=== PATIENT | female | born 1970 | race Caucasian/White ===

== ENCOUNTER → 2022-01-04 | Outpatient (CLI) | payer BC ==
--- NOTE | 2022-01-04 10:04 | US ---
EXAMINATION TYPE: US abdomen complete DATE OF EXAM: 01/04/2022 COMPARISON: NONE CLINICAL HISTORY: R10.11 Right upper quadrant abdomen pain for 3 days. TECHNIQUE: Multiple sonographic images of the abdomen are obtained. FINDINGS: EXAM MEASUREMENTS: Liver Length: 16.6 cm Gallbladder Wall: 0.17 cm CBD: 0.39 cm Spleen: 10.2 cm Right Kidney: 10.1 x 4.2 x 4.8 cm Left Kidney: 10.7 x 4.8 x 4.9 cm Pancreas: Tail obscured by overlying bowel gas Liver: Increased attenuation. Hypoechoic area near gallbladder measuring 1.9 x 0.7 x 1.5 cm, possib ly sparring vs mass. Hypoechoic mass right lobe near dome measuring 2.0 x 1.9 x 1.8cm. Gallbladder: wnl. No shadowing calculi, wall thickening, or pericholecystic fluid. Evidence for sonographic Petty's sign: No CBD: wnl Spleen: wnl Right Kidney: wnl . No solid mass, hydronephrosis, shadowing calculi. Left Kidney: wnl . No solid mass, hydronephrosis, or shadowing calculi. Upper IVC: wnl Abd Aorta: wnl IMPRESSION: Hepatic steatosis with hypoechoic 2 cm mass within the right lobe near the dome and additional hypoec hoic area near the gallbladder measuring up to 1.9 cm which may represent focal fatty sparing versus mass. Further evaluation with CT or MR abdomen with IV contrast ( liver mass protocol) is recommended .
== END | disposition home or self-care (01) ==
LOC: RADUSWWP 08:33
PROVIDERS: ATTEND Family Medicine
DX: K76.0 Fatty (change of) liver, not elsewhere classified (principal)
CPT/HCPCS: 76700

== ENCOUNTER → 2022-01-06 | Outpatient (CLI) | payer BC ==
--- NOTE | 2022-01-06 16:15 | CT ---
EXAMINATION TYPE: CT abdomen wo/w con DATE OF EXAM: 01/06/2022 COMPARISON: Correlation ultrasound 01/04/2022 HISTORY: 52-year-old female R16.0, hepatomegaly, RUQ pain TECHNIQUE: Contiguous axial scanning of the abdomen before and after administration of 70 ml Isovue 3 00 IV contrast. Delayed images through the kidneys and coronal/sagittal reconstructions performed. CT DLP: 1582.3 mGycm Automated exposure control for dose reduction was used. FINDINGS: Heart normal size without pericardial effusion. Lung bases clear without pleural effusion. Liver normal size at 16.8 cm. There is low attenuation compatible with fatty infiltration. We note so me focal fatty sparing along the gallbladder fossa. There is a 2.4 cm lesion within the posterior rig ht liver lobe, axial image 26. This shows nodular arterial phase enhancement and fill-in on the delay ed images suggesting hepatic hemangioma. This corresponds well with the 2 cm ultrasound lesion. Portal venous system is patent. No biliary ductal dilatation. Gallbladder, adrenal glands, kidneys, spleen, and pancreas within normal limits. No dilated small bowel, free fluid, or free air. No mesenteric or retroperitoneal lymphadenopathy. A few nonspecific borderline-sized right lower quadrant mesenteric lymph nodes measure up to 8 mm. Mild stool burden. No pericolonic inflammatory change. Pelvis not imaged. Bones: Facet arthropathy lower lumbar spine. Mild degenerative disc disease lower thoracic spine. IMPRESSION: 1. MILD TO MODERATE HEPATIC STEATOSIS. CORRELATE WITH LFT's, LIVER PROTOCOL, AND PATIENT RISK FACTORS . 2. FINDINGS CONFIRM FOCAL FATTY SPARING ALONG THE GALLBLADDER FOSSA. 3. THE SECOND LESION ON ULTRASOUND CORRESPONDS TO A 2.4 CM BENIGN HEMANGIOMA OF THE POSTERIOR RIGHT L IVER LOBE.
== END | disposition home or self-care (01) ==
LOC: RADCTMAIN 12:29
PROVIDERS: ATTEND Family Medicine
DX: D18.03 Hemangioma of intra-abdominal structures (principal); K76.0 Fatty (change of) liver, not elsewhere classified
CPT/HCPCS: 74170; Q9967

== ENCOUNTER → 2022-01-24 | Outpatient (CLI) | payer BC ==
--- NOTE | 2022-01-24 09:34 | NM ---
EXAMINATION TYPE: NM hepatobiliary w EF DATE OF EXAM: 01/24/2022 9:23 AM COMPARISON: CT abdomen pelvis most recent from . 01/06/2022, ultrasound 01/04/2022 CLINICAL INDICATION:Female, 52 years old with history of R10.11 RUQ pain; TECHNIQUE: The patient was given 4.3 mCi of Technetium 99m-Mebrofenin as a radiotracer and multiple scintigraphic images were obtained of the abdomen. Gallbladder function was also assessed after the a dministration of 4 mL of Sincalide (cholecystokinin) and additional scintigraphic images were obtaine d of the abdomen. A region of interest was drawn over the gallbladder and a timing activity curve was generated. The gallbladder ejection fraction was calculated. FINDINGS: Normal uptake of radiotracer was identified within the liver within 0 seconds with excretion into the hepatic and common biliary ducts within 6 minutes. There was normal progressive washout of the liver over the course of the study. Radiotracer uptake within the gallbladder at 30 minutes as well as sma ll bowel activity was identified at 10 minutes. Maximum calculated gallbladder ejection fraction is: 61% at 30 minutes (Normal gallbladder ejection fraction is > 35%) IMPRESSION: 1. Normal hepatobiliary scan. 2. Normal ejection fraction.
== END | disposition home or self-care (01) ==
LOC: RADNMMAIN 07:04
PROVIDERS: ATTEND Family Medicine
DX: R10.11 Right upper quadrant pain (principal)
CPT/HCPCS: 78226; A9537

== ENCOUNTER 2024-01-07 02:27 | Inpatient (IN) | payer BC ==
--- NOTE | 2024-01-07 03:05 | ED ---
Abdominal Pain HPI - General Source: patient Mode of arrival: wheelchair Limitations: no limitations - History of Present Illness MD Complaint: abdominal pain -: days(s) Location: diffuse Migration to: no migration Severity: moderate Quality: aching Consistency: constant Improves With: nothing Worsens With: nothing Associated Symptoms: nausea, vomiting, diarrhea <Darren Chawla - Last Filed: 01/07/24 07:07> <Manjinder Schmitt - Last Filed: 01/07/24 08:25> - General Chief Complaint: Abdominal Pain Stated Complaint: NV Time Seen by Provider: 01/07/24 02:50 - History of Present Illness Initial Comments: This patient is a 54-year-old woman who presents to have evaluation for diffuse abdominal pain. She is also having multiple rounds of nausea and vomiting and some diarrhea. She states that symptoms started on Sunday. She has had greater than 10 rounds of vomiting per day. She has not noted any blood or coffee-ground material. No bloody bowel movements. She has not noted tarry stools. Patient states that she is urinating less than usual and she thinks she is dehydrated. Does note that she had celebrated her birthday on Sunday and had 4-5 drinks but she otherwise does not drink much. (Darren Chawla) - Related Data Allergies Allergy/AdvReac Type Severity Reaction Status Date / Time No Known Allergies Allergy Verified 01/07/24 02:36 Review of Systems ROS Other: All systems not noted in ROS Statement are negative. Constitutional: Denies: fever, chills, weakness Respiratory: Denies: cough, dyspnea Cardiovascular: Denies: chest pain, palpitations, orthopnea, edema, syncope Gastrointestinal: Reports: abdominal pain, nausea, vomiting, diarrhea. Denies: constipation, hematemesis, melena, hematochezia Genitourinary: Denies: dysuria, hematuria Musculoskeletal: Denies: back pain Skin: Denies: rash Neurological: Denies: headache, weakness, numbness <Darren Chawla - Last Filed: 01/07/24 07:07> ROS Other: All systems not noted in ROS Statement are negative. <Manjinder Schmitt - Last Filed: 01/07/24 08:25> ROS Statement: Those systems with pertinent positive or pertinent negative responses have been documented in the HPI. Past Medical History Past Medical History: No Reported History History of Any Multi-Drug Resistant Organisms: None Reported Past Surgical History: No Surgical Hx Reported Past Psychological History: No Psychological Hx Reported Smoking Status: Never smoker Past Alcohol Use History: Occasional Past Drug Use History: None Reported <Darren Chawla - Last Filed: 01/07/24 07:07> General Exam Limitations: no limitations General appearance: alert, in no apparent distress Head exam: Present: atraumatic, normocephalic Eye exam: Present: normal appearance. Absent: scleral icterus, conjunctival injection Neck exam: Present: normal inspection Respiratory exam: Present: normal lung sounds bilaterally. Absent: respiratory distress, wheezes, rales, rhonchi, stridor, accessory muscle use Cardiovascular Exam: Present: regular rate, normal rhythm, normal heart sounds. Absent: systolic murmur, diastolic murmur, rubs, gallop GI/Abdominal exam: Present: soft, tenderness. Absent: distended, guarding, rebound, rigid, mass, pulsatile mass, hernia Extremities exam: Present: normal inspection, normal capillary refill. Absent: pedal edema, calf tenderness Back exam: Present: normal inspection. Absent: CVA tenderness (R), CVA tend erness (L) Neurological exam: Present: alert Skin exam: Present: warm, dry, intact, normal color. Absent: rash <Darren Chawla - Last Filed: 01/07/24 07:07> Course Vital Signs 01/07/24 01/07/24 01/07/24 02:34 06:20 08:17 Temperature 98.5 F Pulse Rate 115 H 79 72 Respiratory 18 16 16 Rate Blood Pressure 171/127 140/88 127/82 O2 Sat by Pulse 96 95 97 Oximetry Medical Decision Making - Lab Data Result diagrams: 01/07/24 03:10 01/07/24 03:10 <Darren Chawla - Last Filed: 01/07/24 07:07> - Lab Data Result diagrams: 01/07/24 03:10 01/07/24 03:10 <Manjinder Schmitt - Last Filed: 01/07/24 08:25> - Medical Decision Making Patient care signed out to me by Dr. Chawla at 7:00 AM. Briefly, patient is a 54-year-old female presents emergency department with abdominal pain nausea and vomiting. Plan at signout was to follow-up with pending imaging studies. Patient had labs that were performed positive for pancreatitis. Plan at signout was to follow-up with pending ultrasound imaging. Ultrasound abdomen obtained showing severe hepatic steatosis. Unable to visualize bile duct gallbladder is hydropic with tiny gallstones. Unclear if this is from gallstone pancreatitis versus simply just hydropic gallbladder from fasting state. Laboratory evaluat ion does not support the diagnosis of choledocholithiasis. Nonetheless patient will be admitted consultation to GI and general surgery. Case discussed with hospitalist for admission. Diagnosis/symptom? @ -Pancreatitis Acute, or Chronic, or Acute on Chronic? @ -Acute, complicated Uncomplicated (without systemic symptoms) or Complicated (systemic symptoms)? @ -Complicated Side effects of treatment? @ -None Exacerbation, Progression, or Severe Exacerbation] @ -No Poses a threat to life or bodily function? @ -yes (Manjinder Schmitt) - Lab Data Lab Results 01/07/24 01/07/24 01/07/24 Range/Units 03:10 03:10 03:10 WBC 12.3 H (3.8-10.6) k/uL RBC 4.98 (3.80-5.40) m/uL Hgb 15.1 (11.4-16.0) gm/dL Hct 45.5 (34.0-46.0) % MCV 91.4 (80.0-100.0) fL MCH 30.3 (25.0-35.0) pg MCHC 33.1 (31.0-37.0) g/dL RDW 13.9 (11.5-15.5) % Plt Count 272 (150-450) k/uL MPV 8.0 Neutrophils % 84 % Lymphocytes % 10 % Monocytes % 4 % Eosinophils % 1 % Basophils % 0 % Neutrophils # 10.3 H (1.3-7.7) k/uL Lymphocytes # 1.2 (1.0-4.8) k/uL Monocytes # 0.4 (0-1.0) k/uL Eosinophils # 0.2 (0-0.7) k/uL Basophils # 0.1 (0-0.2) k/uL Sodium 138 (137-145) mmol/L Potassium 3.8 (3.5-5.1) mmol/L Chloride 105 (98-107) mmol/L Carbon Dioxide 20 L (22-30) mmol/L Anion Gap 13 mmol/L BUN 24 H (7-17) mg/dL Creatinine 0.80 (0.52-1.04) mg/dL Est GFR (CKD-EPI)AfAm >90 (>60 ml/min/1.73 sqM) Est GFR (CKD-EPI)NonAf 84 (>60 ml/min/1.73 sqM) Glucose 137 H (74-99) mg/dL Plasma Lactic Acid Willy 1.3 (0.7-2.0) mmol/L Calcium 9.7 (8.4-10.2) mg/dL Total Bilirubin 1.3 (0.2-1.3) mg/dL AST 87 H (14-36) U/L ALT 87 H (4-34) U/L Alkaline Phosphatase 65 (38-126) U/L C-Reactive Protein 0.7 (<1.0) mg/dL Total Protein 8.5 H (6.3-8.2) g/dL Albumin 5.2 H (3.5-5.0) g/dL Amylase 2275 H* (30-110) U/L Lipase >51038 H (23-300) U/L Disposition <Darren Chawla - Last Filed: 01/07/24 07:07> Decision Time: 08:25 <Manjinder Schmitt - Last Filed: 01/07/24 08:25> Clinical Impression: Pancreatitis Disposition: ADMITTED IP TO THIS [facility] Condition: Serious Referrals: Hal Moody DO [Primary Care Provider] - 1-2 days
[2024-01-07] MEDS: MORPHINE SULFATE 4 MG/ML SYRINGE IV STA ×2 (03:17→05:55)
[2024-01-07] MEDS: ONDANSETRON 4 MG/2 ML VIAL IVP STA (03:19)
[2024-01-07] MEDS: SODIUM CHLORIDE 0.9% 500 ML 500 ML IV STA (03:19)
[2024-01-07 03:25] LABS: Basophils # (A) 0.1 k/uL (0-0.2); Basophils % (A) 0 %; Eosinophils # (A) 0.2 k/uL (0-0.7); Eosinophils % (A) 1 %; HCT 45.5 % (34.0-46.0); HGB 15.1 gm/dL (11.4-16.0); Lymphocytes # (A) 1.2 k/uL (1.0-4.8); Lymphocytes % (A) 10 %; MCH 30.3 pg (25.0-35.0); MCHC 33.1 g/dL (31.0-37.0); MCV 91.4 fL (80.0-100.0); Monocytes # (A) 0.4 k/uL (0-1.0); Monocytes % (A) 4 %; Neutrophils # (A) 10.3 k/uL (1.3-7.7); Neutrophils % (A) 84 %; Platelet Count 272 k/uL (150-450); RBC 4.98 m/uL (3.80-5.40); RDW 13.9 % (11.5-15.5); WBC 12.3 k/uL (3.8-10.6)
[2024-01-07 03:37] LABS: ALT 87 U/L (4-34); AST 87 U/L (14-36); African American GFR (CKD) >90 (>60 ml/min/1.73 sqM); Albumin 5.2 g/dL (3.5-5.0); Alkaline Phosphatase 65 U/L (38-126); Anion Gap 13 mmol/L; Blood Urea Nitrogen 24 mg/dL (7-17); C Reactive Protein 0.7 mg/dL (<1.0); Calcium 9.7 mg/dL (8.4-10.2); Carbon Dioxide 20 mmol/L (22-30); Chloride 105 mmol/L (98-107); Glucose 137 mg/dL (74-99); Non-African American GFR(CKD) 84 (>60 ml/min/1.73 sqM); Potassium 3.8 mmol/L (3.5-5.1); Sodium 138 mmol/L (137-145); Total Bilirubin 1.3 mg/dL (0.2-1.3); Total Protein 8.5 g/dL (6.3-8.2)
[2024-01-07 04:22] LABS: Amylase 2275 U/L (30-110)
[2024-01-07 04:23] LABS: Lipase >20000 U/L (23-300)
--- NOTE | 2024-01-07 04:55 | CT ---
EXAMINATION TYPE: CT abdomen pelvis wo con DATE OF EXAM: 01/07/2024 HISTORY: abdominal pain with nausea and vomiting. CT DLP: 730.4 mGycm. Automated Exposure Control for Dose Reduction was Utilized. TECHNIQUE: CT scan of the abdomen and pelvis is performed without oral or IV contrast. COMPARISON: Prior CT January 06, 2022 FINDINGS: Within the limitations of a non-contrast study, the following observations are made. LUNG BASES: No significant abnormality is appreciated. LIVER/GB: Dependent small stones and/or gallbladder sludge is seen. Gallbladder is distended margins without surrounding fat stranding. Liver is heterogeneously hypodense consistent with fatty infiltrat karon hepatocellular disease PANCREAS: Mild to moderate fluid surrounding the pancreas. No well-formed fluid collection is seen. SPLEEN: No significant abnormality is seen. ADRENALS: No significant abnormality is seen. KIDNEYS: No renal stones or hydronephrosis is present bilaterally. BOWEL: No abnormal small or large bowel dilatation. GENITAL ORGANS: There is anteverted uterus redemonstrated. Tubal ligation clip along the right aspect of uterus is again seen. Displaced left-sided clip into the pelvic cul-de-sac is noted. LYMPH NODES: No greater than 1cm abdominal or pelvic lymph nodes are appreciated. OSSEOUS STRUCTURES: No significant abnormality is seen. OTHER: No significant additional abnormality is seen. IMPRESSION: Mild to moderate fluid surrounding the pancreas likely product of acute pancreatitis. Cor relation clinically and with pancreatic lab values is advised. [facility], , 01/07/2024 4:53 AM
[2024-01-07] MEDS: SODIUM CHLORIDE 0.9% 1,000 ML IV ONE (05:54)
--- NOTE | 2024-01-07 07:31 | US ---
EXAMINATION TYPE: US abdomen limited DATE OF EXAM: 01/07/2024 COMPARISON: CT earlier today CLINICAL INDICATION: Female, 54 years old with history of attention RUQ, evaluate CBD; CT showed gall stones, pancreatitis, and fatty liver TECHNIQUE: Grayscale and color Doppler imaging of the right upper quadrant was performed. FINDINGS: EXAM MEASUREMENTS: Liver Length: 18.8 cm Gallbladder Wall: 0.2 cm CBD: Unable to identify due to fatty liver and bowel gas Right Kidney: 10.8 x 4.1 x 5.7 cm Pancreas: No gross abnormality by ultrasound. Liver: Severely increased attenuation, decreased visualization of vessels suggestive of fatty infilt rate Gallbladder: Tiny echogenic foci with posterior shadowing seen within dependant portion of the gallb ladder. Mildly hydropic measuring 5.0 cm wide. No surrounding fluid or jennifer wall thickening. Evidence for sonographic Petty's sign: No CBD: Unable to identify due to fatty liver attenuation and bowel gas Right Kidney: wnl IMPRESSION: 1. Severe hepatic steatosis. Appropriate clinical management is advised. 2. Unable to visualize the bile duct to the bowel gas and attenuation from the fatty liver. 3. Hydropic gallbladder with tiny gallstones. The excessive distention may relate to fasting state. I f concern for early acute cholecystitis, HIDA scan can be considered. There is no jennifer wall thickeni ng or surrounding fluid at this time. [facility], , 01/07/2024 7:28 AM
[2024-01-07] MEDS ORDERED: ACETAMINOPHEN TAB 325 MG TAB PO PRN (08:21)
[2024-01-07] MEDS ORDERED: NALOXONE 0.4 MG/ML 1 ML VIAL IV PRN (08:21)
[2024-01-07] MEDS: SODIUM CHLORIDE 0.9% 1,000 ML IV SCH (08:34)
--- NOTE | 2024-01-07 12:43 | P.CONS ---
History of Present Illness - Reason for Consult Consult date: 01/07/24 Pancreatitis Requesting physician: Manjinder Schmitt - Chief Complaint abdominal pain - History of Present Illness Is a pleasant 54-year-old female who presented to the emergency department with complaints of abdominal pain and nausea and vomiting. She states the pain wraps across her upper abdomen. Started on Sunday and has progressively gotten worse associated with nausea and vomiting. She was noted to have elevated amylase and lipase as well as AST and ALT. She had a CT of the abdomen pelvis showing acute pancreatitis with multiple gallstones and gallstone sludge. Gastroenterology was consulted for pancreatitis. She denies any previous history of pancreatitis or gallbladder disease. Total bilirubin 1.3 AST 87 ALT 87 alkaline phosphatase 67 amylase 2275 lipase greater than 20,000 Review of Systems REVIEW OF SYSTEMS: CARDIOPULMONARY: No chest pain or shortness of breath. Gastrointestinal: Abdominal pain associated with nausea and vomiting. No hematemesis, coffee-ground emesis. No rectal bleeding, or melena. GENITOURINARY: No dysuria or hematuria. MUSCULOSKELETAL: Reports normal range of motion. SKIN: No rashes. No jaundice. ENDOCRINE: No chills, fevers. No excessive weight gain or loss. No polydipsia or polyuria. PSYCHIATRIC: Unremarkable. NEUROLOGY: No change in mental status. Denies dizziness, headache. ENT: Vision unremarkable. CONSTITUTIONAL: No recent weight loss. No fever, chills, night sweats. Past Medical History Past Medical History: No Reported History History of Any Multi-Drug Resistant Organisms: None Reported Past Surgical History: No Surgical Hx Reported Past Psychological History: No Psychological Hx Reported Smoking Status: Never smoker Past Alcohol Use History: Occasional Past Drug Use History: None Reported Medications and Allergies Home Medications Medication Instructions Recorded Confirmed Type No Known Home Medications 01/07/24 01/07/24 History Allergies Allergy/AdvReac Type Severity Reaction Status Date / Time No Known Allergies Allergy Verified 01/07/24 08:34 Physical Exam Vitals: Vital Signs Temp Pulse Resp BP Pulse Ox 01/07/24 08:17 72 16 127/82 97 01/07/24 06:20 79 16 140/88 95 01/07/24 02:34 98.5 F 115 H 18 171/127 96 Intake and Output 01/06/24 01/07/24 01/07/24 22:59 06:59 14:59 Other: Weight 81.647 kg General appearance: The patient is alert, oriented, appears in no acute distress. HET: Head is normocephalic and atraumatic. Conjunctiva pink. Sclera anicteric. Neck: Supple without lymphadenopathy. Trachea midline. Heart: Regular. Lungs: Equal expansion, normal respiratory effort. Abdomen: Soft, upper abdominal tenderness, nondistended. Skin: No rashes. No jaundice. Extremities: Normal skin color and turgor. No pedal edema. Neurological: No focal deficits. Alert and oriented x3. Results CBC & Chem 7: 01/07/24 03:10 01/07/24 03:10 Labs: Abnormal Lab Results - Last 24 Hours (Table) 01/07/24 01/07/24 Range/Units 03:10 03:10 WBC 12.3 H (3.8-10.6) k/uL Neutrophils # 10.3 H (1.3-7.7) k/uL Carbon Dioxide 20 L (22-30) mmol/L BUN 24 H (7-17) mg/dL Glucose 137 H (74-99) mg/dL AST 87 H (14-36) U/L ALT 87 H (4-34) U/L Total Protein 8.5 H (6.3-8.2) g/dL Albumin 5.2 H (3.5-5.0) g/dL Amylase 2275 H* (30-110) U/L Lipase >58643 H (23-300) U/L Comments: CT abdomen pelvis without contrast reports dependent small stones and/or gallbladder sludge seen. Gallbladder distended margins without surrounding fat stranding. Liver is heterogeneously hypodense consistent with fatty infiltrative hepatocellular disease. Mild to moderate fluid surrounding the pancreas likely product of acute pancreatitis. Abdominal ultrasound reports severe hepatic steatosis. Appropriate clinical management is advised. Unable to visualize the bile duct to 2 bowel gas and attenuation from the fatty liver. Hydropic gallbladder with tiny gallstones. The extensive distention may relate to fasting state. If concern for early acute cholecystitis HIDA scan can be considered. There is no jennifer wall thickening or surrounding fluid at this time. Assessment and Plan (1) Acute gallstone pancreatitis Narrative/Plan: 54-year-old female presenting with acute onset abdominal pain on Sunday continuing to get worse and associated with nausea and vomiting. She has labs consistent with pancreatitis. CT and ultrasound evidence of gallstones, also noted fatty liver disease. LFTs are mildly elevated without cholestatic pattern. Treat for acute gallstone pancreatitis with symptomatic treatment. Recommend aggressive IV hydration, pain medication and antiemetics. Await recommendations from general surgery. Current Visit: Yes Status: Acute Code(s): K85.10 - BILIARY ACUTE PANCREATITIS WITHOUT NECROSIS OR INFECTION SNOMED Code(s): 261575825 Plan: 1. Continue symptomatic and supportive care 2. Aggressive IV hydration 3. Pain medication as needed 4. Antiemetics as needed 5. Protonix 40 mg daily for GI prophylaxis 6. Keep n.p.o., may have limited ice chips 7. Repeat labs daily 8. Continue with recommendations from general surgery Thank you for this consultation, we will continue to follow Dr. Zhane Stevens I agree with the dictator's note, documented as a scribe by Lynn Hernandez.
[2024-01-07] MEDS: MORPHINE SULFATE 4 MG/ML SYRINGE IV PRN (14:12)
--- NOTE | 2024-01-07 14:51 | P.GSCN ---
History of Present Illness Consult date: 01/07/24 History of present illness: CHIEF COMPLAINT: Abdominal pain HISTORY OF PRESENT ILLNESS: This is a 54-year-old who presented with epigastric abdominal pain that radiates over to the right upper quadrant and around towards the back. Patient reports symptoms started on Sunday. And then her nausea and vomiting with dry heaves started on Sunday. She has been having hot and cold flashes. She reports no prior histories of pancreatitis. And she reports no history of gallstones. She denies any fevers. She had a CT scan completed that showed evidence of pancreatitis and an abdominal ultrasound that reported hydropic gallbladder with stones and fatty liver. Patient had elevated lipase and liver enzymes on lab work. Patient's past surgical history includes avery endectomy and removal of fibroids from the uterus. PAST MEDICAL HISTORY: none PAST SURGICAL HISTORY: Appendectomy, , removal of fibroids MEDICATIONS: See below ALLERGIES: See below SOCIAL HISTORY: No illicit drug use. REVIEW OF SYSTEMS: CONSTITUTIONAL: Denies fever or chills. HEENT: Denies blurred vision, vision changes, or eye pain. Denies hemoptysis CARDIOVASCULAR: Denies chest pain or pressure. RESPIRATORY: No shortness of breath. GASTROINTESTINAL: See HPI for pertinent findings HEMATOLOGIC: Denies bleeding disorders. GENITOURINARY: Denies any blood in urine or increased urinary frequency. SKIN: Denies pruitis. Denies rash. PHYSICAL EXAM: VITAL SIGNS: Reviewed GENERAL: Well-developed in no acute distress. HEENT: No sclera icterus. Extraocular movements grossly intact. Moist buccal mucosa. Head is atraumatic, normocephalic. No nasal drainage. ABDOMEN: Soft. Nondistended. Tenderness with palpation right upper quadrant and epigastric area. No guarding. NEUROLOGIC: Alert and oriented. Cranial nerves II through XII grossly intact. LABORATORY DATA: WBC 12.3 Hgb 15.1 platelets 272 Sodium 138 potassium 3.8 creatinine 0.8 Lactic acid 1.3 Total bili 1.3 AST 87 ALT 87 alk phos 65 Lipase greater than 20,000 amylase 2275 IMAGING: CT scan abdomen pelvis reports mild to moderate fluid surrounding the pancreas likely a product of acute pancreatitis. Abdominal ultrasound reports severe hepatic steatosis. Hydropic gallbladder with tiny gallstones. ASSESSMENT: 1. Acute gallstone pancreatitis with evidence of hydropic gallbladder with tiny gallstones on ultrasound 2. Chronic cholecystitis 3. Mildly elevated LFTs PLAN: -Laparoscopic cholecystectomy scheduled for tomorrow with Dr. Schneider -Keep patient n.p.o. except for ice chips -Repeat LFTs and lipase in a.m. -Await further recommendations per GI service -Add Zosyn due to elevated white count -Continue IV fluids -Continue pain management Physician Embedded Software Development Engineer note has been reviewed by physician. Signing provider agrees with the documented findings, assessment, and plan of care. Past Medical History Past Medical History: No Reported History History of Any Multi-Drug Resistant Organisms: None Reported Past Surgical History: No Surgical Hx Reported Past Psychological History: No Psychological Hx Reported Smoking Status: Never smoker Past Alcohol Use History: Occasional Past Drug Use History: None Reported Medications and Allergies Home Medications Medication Instructions Recorded Confirmed Type No Known Home Medications 01/07/24 01/07/24 History Allergies Allergy/AdvReac Type Severity Reaction Status Date / Time No Known Allergies Allergy Verified 01/07/24 08:34 Surgical - Exam Vital Signs Temp Pulse Resp BP Pulse Ox 98.5 F 115 H 18 171/127 96 01/07/24 02:34 01/07/24 02:34 01/07/24 02:34 01/07/24 02:34 01/07/24 02:34 Results - Labs 01/07/24 03:10 01/07/24 03:10 Abnormal Lab Results - Last 24 Hours (Table) 01/07/24 01/07/24 Range/Units 03:10 03:10 WBC 12.3 H (3.8-10.6) k/uL Neutrophils # 10.3 H (1.3-7.7) k/uL Carbon Dioxide 20 L (22-30) mmol/L BUN 24 H (7-17) mg/dL Glucose 137 H (74-99) mg/dL AST 87 H (14-36) U/L ALT 87 H (4-34) U/L Total Protein 8.5 H (6.3-8.2) g/dL Albumin 5.2 H (3.5-5.0) g/dL Amylase 2275 H* (30-110) U/L Lipase >10384 H (23-300) U/L Diabetes panel 01/07/24 Range/Units 03:10 Sodium 138 (137-145) mmol/L Potassium 3.8 (3.5-5.1) mmol/L Chloride 105 (98-107) mmol/L Carbon Dioxide 20 L (22-30) mmol/L BUN 24 H (7-17) mg/dL Creatinine 0.80 (0.52-1.04) mg/dL Glucose 137 H (74-99) mg/dL Calcium 9.7 (8.4-10.2) mg/dL AST 87 H (14-36) U/L ALT 87 H (4-34) U/L Alkaline Phosphatase 65 (38-126) U/L Total Protein 8.5 H (6.3-8.2) g/dL Albumin 5.2 H (3.5-5.0) g/dL Calcium panel 01/07/24 Range/Units 03:10 Calcium 9.7 (8.4-10.2) mg/dL Albumin 5.2 H (3.5-5.0) g/dL Pituitary panel 01/07/24 Range/Units 03:10 Sodium 138 (137-145) mmol/L Potassium 3.8 (3.5-5.1) mmol/L Chloride 105 (98-107) mmol/L Carbon Dioxide 20 L (22-30) mmol/L BUN 24 H (7-17) mg/dL Creatinine 0.80 (0.52-1.04) mg/dL Glucose 137 H (74-99) mg/dL Calcium 9.7 (8.4-10.2) mg/dL Adrenal panel 01/07/24 Range/Units 03:10 Sodium 138 (137-145) mmol/L Potassium 3.8 (3.5-5.1) mmol/L Chloride 105 (98-107) mmol/L Carbon Dioxide 20 L (22-30) mmol/L BUN 24 H (7-17) mg/dL Creatinine 0.80 (0.52-1.04) mg/dL Glucose 137 H (74-99) mg/dL Calcium 9.7 (8.4-10.2) mg/dL Total Bilirubin 1.3 (0.2-1.3) mg/dL AST 87 H (14-36) U/L ALT 87 H (4-34) U/L Alkaline Phosphatase 65 (38-126) U/L Total Protein 8.5 H (6.3-8.2) g/dL Albumin 5.2 H (3.5-5.0) g/dL
--- NOTE | 2024-01-07 16:34 | P.HPIM ---
History of Present Illness H&P Date: 01/07/24 Chief Complaint: Abdominal pain Patient is a 54-year-old female without significant past medical history presents to ER with complaints of abdominal pain mainly in the epigastric region and right upper quadrant, radiating around to the back. Patient states that her symptoms started on Sunday. On Sunday patient started having nausea and dry heaves which is not improving. Patient has dry heaving 10-15 times today. He has been having hot and cold flashes. Denied any alcohol abuse. Denied any prior history of gallstones. Denied any fever or chills. No chest pain or shortness of breath. CT of the abdomen pelvis on admission showed mild to moderate fluid surrounding the pancreas likely product of acute pancreatitis. Correlate clinically with the pancreatic lab values is advised. Dependent small stones and/gallbladder sludge is seen. Gallbladder is distended margins without is surrounding fat stranding. Liver is heterogeneity hypodense consistent with fatty infiltrate to hepatocellular disease. Laboratory show WBC 12.3 hemoglobin 15.1 and platelets [birth year]20[birth year]1971 Sodium 138 potassium 3.8 chloride 105 bicarb is 20 BUN 24 and creatinine 0.8 and blood sugar 137 lactic acid 1.3 total bili 1.3 AST 87 ALT 87 alk phos 65 albumin 5.2 mL is 2275 and lipase greater than 20,000 Review of Systems Constitutional: Patient denies any fever or chills . No generalized weakness or weight loss. Abdomen: Patient is complaining of abdominal pain, nausea and dry heaves. No diarrhea.. Cardiovascular: Patient denies any chest pain or short of breath no palpitations. Respiratory: patient denied any cough or sputum production. No shortness of breath Neurologic: Patient denied any numbness or tingling. no headache. Musculoskeletal: Patient denies any complaints of joint swelling or deformity. Skin: Negative Psychiatric: Negative Endocrine: No heat or cold intolerance. No recent weight gain. Genitourinary: No dysuria or hematuria. All other 14 point ROS negative except the above Past Medical History Past Medical History: No Reported History History of Any Multi-Drug Resistant Organisms: None Reported Past Surgical History: No Surgical Hx Reported Past Psychological History: No Psychological Hx Reported Smoking Status: Never smoker Past Alcohol Use History: Occasional Past Drug Use History: None Reported Medications and Allergies Home Medications Medication Instructions Recorded Confirmed Type No Known Home Medications 01/07/24 01/07/24 History Allergies Allergy/AdvReac Type Severity Reaction Status Date / Time No Known Allergies Allergy Verified 01/07/24 08:34 Physical Exam Vitals: Vital Signs Temp Pulse Resp BP Pulse Ox 01/07/24 08:17 72 16 127/82 97 01/07/24 06:20 79 16 140/88 95 01/07/24 02:34 98.5 F 115 H 18 171/127 96 Intake and Output 01/06/24 01/07/24 01/07/24 22:59 06:59 14:59 Other: Weight 81.647 kg PHYSICAL EXAMINATION: Patient is lying in the bed mild distress due to pain, awake alert and oriented.. HEENT: Normocephalic. Neck is supple. Pupils reactive. Nostrils clear. Oral cavity is moist. Neck reveals no JVD, carotid bruits, or thyromegaly. CHEST EXAMINATION: Trachea is central. Symmetrical expansion. Lung caldwell clear to auscultation and percussion. CARDIAC: Normal S1, S2 with no gallops. No murmurs ABDOMEN: Soft. Bowel sounds present. Epigastric tenderness and mild guarding.. No abdominal bruits. Extremities: reveal no edema. No clubbing or cyanosis Neurologically awake, alert, oriented x3 with well-coordinated movements. No focal deficits noted Skin: No rash or skin lesions. Psychiatric: Coperative. Nonsuicidal Musculoskeletal: No joint swelling or deformity. Normal range of motion. Results CBC & Chem 7: 01/07/24 03:10 01/07/24 03:10 Labs: Abnormal Lab Results - Last 24 Hours (Table) 01/07/24 01/07/24 Range/Units 03:10 03:10 WBC 12.3 H (3.8-10.6) k/uL Neutrophils # 10.3 H (1.3-7.7) k/uL Carbon Dioxide 20 L (22-30) mmol/L BUN 24 H (7-17) mg/dL Glucose 137 H (74-99) mg/dL AST 87 H (14-36) U/L ALT 87 H (4-34) U/L Total Protein 8.5 H (6.3-8.2) g/dL Albumin 5.2 H (3.5-5.0) g/dL Amylase 2275 H* (30-110) U/L Lipase >64737 H (23-300) U/L Thrombosis Risk Factor Assmnt - DVT/VTE Prophylaxis DVT/VTE Prophylaxis: Pharmacologic Prophylaxis ordered Assessment and Plan Assessment: Acute severe pancreatitis likely gallstone related Small gallstones and gallbladder sludge with distended gallbladder. Elevated amylase and lipase levels Mild leukocytosis GI and DVT prophylaxis with Pepcid and heparin subcu Plan: Patient will be continued on IV hydration and nothing by mouth. Continue with IV pain medications in the form of morphine 4 mg every 4 hourly. Gastroenterology and general surgery was consulted. Patient was started on antibiotics due to leukocytosis and continue to follow closely. Time with Patient: Greater than 30
[2024-01-07] MEDS: PIPERACILLIN-TAZOBACTAM 3.375 GM in SODIUM CHLORIDE 0.9% 100 ML IVPB SCH (16:58)
[2024-01-07] MEDS: HEPARIN SODIUM,PORCINE 5,000 UNIT/ML 1 ML VIAL SQ SCH (16:58)
[2024-01-07] MEDS: PANTOPRAZOLE 40 MG/10 ML VIAL IVP SCH (17:09)
[2024-01-07] MEDS: LACTATED RINGERS 1,000 ML IV SCH (19:20)
[2024-01-07] MEDS: DEXAMETHASONE SOD PHOSPHATE 4 MG/ML 1 ML VIAL IV ONE (19:21)
[2024-01-07 19:27] LABS: Appearance,Urine Cloudy (Clear); Bilirubin,Urine Negative (Negative); Blood,Urine Negative (Negative); Color,Urine Yellow; Glucose,Urine (UA) Negative (Negative); Hyaline Casts,Urine 4 /lpf (0-2); Ketones,Urine 1+ (Negative); Leukocyte Esterase,Urine Negative (Negative); Mucus,Urine Many /hpf; Nitrite,Urine Negative (Negative); PH, Urine 5.5 (5.0-8.0); Protein,Urine Trace (Negative); RBC,Urine <1 /hpf (0-5); Squamous Epithelial Cell,Urine 4 /hpf (0-4); Urobilinogen,Urine <2.0 mg/dL (<2.0); WBC,Urine 2 /hpf (0-5)
[2024-01-07] MEDS ORDERED: FAMOTIDINE 20 MG TAB PO SCH (21:00)
[2024-01-08 01:23] VITALS: RESP 16
[2024-01-08 06:20] LABS: ALT 54 U/L (4-34); AST 46 U/L (14-36); African American GFR (CKD) 76 (>60 ml/min/1.73 sqM); Albumin 3.4 g/dL (3.5-5.0); Alkaline Phosphatase 44 U/L (38-126); Anion Gap 4 mmol/L; Blood Urea Nitrogen 24 mg/dL (7-17); Calcium 8.3 mg/dL (8.4-10.2); Carbon Dioxide 23 mmol/L (22-30); Chloride 114 mmol/L (98-107); Glucose 79 mg/dL (74-99); Lipase 1510 U/L (23-300); Non-African American GFR(CKD) 66 (>60 ml/min/1.73 sqM); Potassium 3.9 mmol/L (3.5-5.1); Sodium 141 mmol/L (137-145); Total Bilirubin 0.7 mg/dL (0.2-1.3); Total Protein 5.8 g/dL (6.3-8.2)
[2024-01-08 06:33] LABS: Prothrombin Time 10.8 sec (10.0-12.5)
[2024-01-08] MEDS ORDERED: fentaNYL (PF) 50 MCG/ML 2 ML AMP IV PRN (07:00)
[2024-01-08] MEDS ORDERED: HYDROmorphone 0.5 MG/0.5 ML SYRINGE IVP PRN (07:00)
[2024-01-08 07:03] LABS: Basophils % (A) 1 %; Eosinophils # (A) 0.2 k/uL (0-0.7); Eosinophils % (A) 4 %; HGB 12.1 gm/dL (11.4-16.0); Lymphocytes # (A) 1.2 k/uL (1.0-4.8); Lymphocytes % (A) 20 %; MCH 31.2 pg (25.0-35.0); MCHC 32.7 g/dL (31.0-37.0); MCV 95.4 fL (80.0-100.0); Mean Platelet Volume 8.4; Monocytes # (A) 0.3 k/uL (0-1.0); Monocytes % (A) 5 %; Neutrophils # (A) 4.1 k/uL (1.3-7.7); Neutrophils % (A) 69 %; Platelet Count 187 k/uL (150-450); RBC 3.88 m/uL (3.80-5.40); RDW 14.1 % (11.5-15.5)
[2024-01-08] MEDS: IV FLUID CONTINUATION 1,000 ML IV ONE (10:37)
[2024-01-08] MEDS: ONDANSETRON 4 MG/2 ML VIAL IVP PRN (10:46)
[2024-01-08] MEDS ORDERED: PROPOFOL 10 MG/ML 20 ML VIAL IV ONE (12:30)
[2024-01-08] MEDS ORDERED: MIDAZOLAM 2 MG/2 ML VIAL ONE (12:30)
[2024-01-08] MEDS ORDERED: GLYCOPYRROLATE 0.2 MG/ML 2 ML VIAL ONE (12:30)
[2024-01-08] MEDS ORDERED: fentaNYL (PF) 50 MCG/ML 2 ML AMP ONE (12:30)
[2024-01-08] MEDS ORDERED: HYDROmorphone (PF) 1 MG/ML ONE (12:30)
[2024-01-08] MEDS ORDERED: ROCURONIUM 10 MG/ML (5 ML VIAL) IV ONE (12:30)
[2024-01-08] MEDS ORDERED: PHENYLEPHRINE-0.9% NACL SYG 1,000 MCG/10 ML SYRINGE ONE (12:30)
[2024-01-08] MEDS ORDERED: SUCCINYLCHOLINE CHLORIDE 200 MG/10 ML VIAL IV ONE (12:30)
[2024-01-08] MEDS ORDERED: NEOSTIGMINE 1 MG/ML 10 ML VIAL ONE (12:30)
[2024-01-08] MEDS ORDERED: KETOROLAC 15 MG/ML 1 ML VIAL ONE (12:30)
[2024-01-08] MEDS ORDERED: LIDOCAINE 1% INJ 10MG/ML (20 ML MDV) ONE (12:30)
[2024-01-08] MEDS: LIDOCAINE 1%-EPI 1:100,000 20 ML VIAL SQ ONE ×2 (12:33→12:52)
[2024-01-08] MEDS: IV FLUID CONTINUATION 500 ML IV ONE (12:35)
[2024-01-08] MEDS: LACTATED RINGERS 1,000 ML IV ONE (13:17)
--- NOTE | 2024-01-08 13:34 | P.PN ---
Subjective Progress Note Date: 01/08/24 Principal diagnosis: Pancreatitis This is a pleasant 54-year-old female who presented to the emergency department with complaints of abdominal pain and nausea and vomiting. She states the pain wraps across her upper abdomen. Started on Sunday and has progressively gotten worse associated with nausea and vomiting. She was noted to have elevated amylase and lipase as well as AST and ALT. She had a CT of the abdomen pelvis showing acute pancreatitis with multiple gallstones and gallstone sludge. Gastroenterology was consulted for pancreatitis. She denies any previous hi story of pancreatitis or gallbladder disease. Total bilirubin 1.3 AST 87 ALT 87 alkaline phosphatase 67 amylase 2275 lipase greater than 20,000 01/08/2024 Patient seen and examined today as a follow-up for pancreatitis. States abdominal pain is improved some. She still has nausea. Liver enzymes and lipase trending down. Total bilirubin 0.7 AST 46 ALT 54 alkaline phosphatase 44 lipase 1510. Patient is scheduled for cholecystectomy today. Objective - Vital Signs Vital signs: Vital Signs Temp 98.4 F 01/08/24 08:00 Pulse 82 01/08/24 08:00 Resp 16 01/08/24 08:00 BP 133/82 01/08/24 08:00 Pulse Ox 94 L 01/08/24 08:00 FiO2 Intake & Output 01/07/24 01/08/24 01/08/24 18:59 06:59 18:59 Intake Total 1000 Balance 1000 Weight 81.647 kg Intake: Intake, IV Titration 1000 Amount Sodium Chloride 0.9% 1, 1000 000 ml @ 130 mls/hr IV . Q7H42M [facility] Rx#:[id number] Other: Voiding Method Toilet # Voids 1 2 # Bowel Movements 0 - Exam General appearance: The patient is alert, oriented, appears in no acute distress. HET: Head is normocephalic and atraumatic. Conjunctiva pink. Sclera anicteric. Neck: Supple without lymphadenopathy. Abdomen: Soft, upper abdominal tenderness, nondistended. Extremities: Normal skin color and turgor. No pedal edema Skin: No rashes, no jaundice Neurological: No focal deficits. Alert and oriented. - Labs CBC & Chem 7: 01/08/24 05:25 01/08/24 05:25 Labs: Abnormal Lab Results - Last 24 Hours (Table) 01/07/24 01/08/24 Range/Units 18:18 05:25 Chloride 114 H (98-107) mmol/L BUN 24 H (7-17) mg/dL Calcium 8.3 L (8.4-10.2) mg/dL AST 46 H (14-36) U/L ALT 54 H (4-34) U/L Total Protein 5.8 L (6.3-8.2) g/dL Albumin 3.4 L (3.5-5.0) g/dL Lipase 1510 H (23-300) U/L Urine Appearance Cloudy H (Clear) Urine Protein Trace H (Negative) Urine Ketones 1+ H (Negative) Hyaline Casts 4 H (0-2) /lpf Urine Mucus Many H (None) /hpf Assessment and Plan (1) Acute gallstone pancreatitis Narrative/Plan: 54-year-old female presenting with acute onset abdominal pain on Sunday continuing to get worse and associated with nausea and vomiting. She has labs c onsistent with pancreatitis. CT and ultrasound evidence of gallstones, also noted fatty liver disease. LFTs are mildly elevated without cholestatic pattern. Treat for acute gallstone pancreatitis with symptomatic treatment. Recommend aggressive IV hydration, pain medication and antiemetics. Await recommendations from general surgery. LFTs trending down as well as lipase. Patient scheduled for cholecystectomy. No indication for any ERCP. Current Visit: Yes Status: Acute Code(s): K85.10 - BILIARY ACUTE PANCREAT ITIS WITHOUT NECROSIS OR INFECTION SNOMED Code(s): 346682554 Plan: 1. Continue symptomatic and supportive care 2. Aggressive IV hydration 3. Pain medication as needed 4. Antiemetics as needed 5. Protonix 40 mg daily for GI prophylaxis 6. Diet per recommendations from general surgery 7. No indication for ERCP 8. Continue with recommendations from general surgery Thank you for this consultation, we will sign off at this time. Dr. Zhane Stevens I agree with the dictator's note, documented as a scribe by Lynn Hernandez.
--- NOTE | 2024-01-08 13:36 | P.OP ---
Date of Procedure: 01/08/24 Preoperative Diagnosis: Cholecystitis Postoperative Diagnosis: Cholecystitis Procedure(s) Performed: Laparoscopic cholecystectomy Anesthesia: ALEE Surgeon: Lopez Schneider Pathology: other (Duodenum, antrum) Condition: stable Disposition: PACU Description of Procedure: The patient was placed on the operating table. The patient received a general endotracheal tube anesthesia. The patients abdomen was prepped and draped in the usual sterile fashion. Through an infraumbilical stab incision, the fascia of the anterior abdominal wall was grasped with a pair of Kochers and then the Veress needle was placed in the peritoneal cavity. Position of the Veress needle was confirmed with positive drop test. The abdomen was then insufflated. After adequate insufflation, the 10 mm trocar was placed in the peritoneal cavity. Following this the laparoscope was placed in the peritoneal cavity. The patient was placed in the head-up, right side up position and then a 5 mm trocar was placed in the right lateral and right subcostal position under direct visualization. A 8 mm trocar was placed in the epigastric position. The gallbladder was grasped in the fundus and infundibulum. Traction on the gallbladder was placed in the lateral and the cephalad positions. The triangle of Calot was visualized.. The cystic duct was bluntly dissected until the union of the cystic duct and common bile duct was seen. A critical view of safety was achieved. The cystic duct was then divided and sealed with the Harmonic scissors. A PDS Endoloop was then placed throughout the cystic duct stump. The cystic artery divided and sealed with the Harmonic scissors. The gallbladder was then removed from the liver bed using Harmonic scissors. The gallbladder was then extracted through the epigastric port site. Operative field was checked for any bleeding spots and Harmonic scissors was used to coagulate the liver bed. The abdomen was irrigated. The trocars were removed. The skin was closed using interrupted 3-0 Vicryl suture. Dermabond dressing were applied. The patient tolerated the procedure well.
[2024-01-09 08:40] LABS: Basophils # (A) 0.06 X 10*3/uL (0.00-0.10); Basophils % (A) 0.7 %; Eosinophils # (A) 0.15 X 10*3/uL (0.04-0.35); Eosinophils % (A) 1.8 %; Lymphocytes # (A) 1.24 X 10*3/uL (0.90-5.00); Lymphocytes % (A) 14.8 %; MCH 29.9 pg (27.0-32.0); MCHC 31.4 g/dL (32.0-37.0); MCV 95.1 FL (80.0-97.0); Mean Platelet Volume 10.8 FL (9.5-12.2); Monocytes # (A) 0.48 X 10*3/uL (0.20-1.00); Monocytes % (A) 5.7 %; NRBC Per 100 WBC 0 X 10*3/uL (0.00-0.01); Neutrophils # (A) 6.42 X 10*3/uL (1.80-7.70); Neutrophils % (A) 76.4 %; Platelet Count 188 X 10*3/uL (140-440); RBC 3.68 X 10*6/uL (4.10-5.20); RDW 13.5 % (11.5-14.5)
[2024-01-09 08:46] LABS: BUN/Creat Ratio 14.75 Ratio (12.00-20.00); Blood Urea Nitrogen 11.8 mg/dL (9.0-27.0); Calcium 8.3 mg/dL (8.7-10.3); Carbon Dioxide 18.4 mmol/L (21.6-31.8); Chloride 106 mmol/L (96-109); Glucose 91 mg/dL (70-110); Sodium 137 mmol/L (135-145)
--- NOTE | 2024-01-09 10:32 | P.PN ---
Subjective Progress Note Date: 01/08/24 Patient is a 54-year-old female without significant past medical history presents to ER with complaints of abdominal pain mainly in the epigastric region and right upper quadrant, radiating around to the back. Patient states that her symptoms started on Sunday. On Sunday patient started having nausea and dry heaves which is not improving. Patient has dry heaving 10-15 times today. He has been having hot and cold flashes. Denied any alcohol abuse. Denied any prior history of gallstones. Denied any fever or chills. No chest pain or shortness of breath. CT of the abdomen pelvis on admission showed mild to moderate fluid surrounding the pancreas likely product of acute pancreatitis. Correlate clinically with the pancreatic lab values is advised. Dependent small stones and/gallbladder sludge is seen. Gallbladder is distended margins without is surrounding fat stranding. Liver is heterogeneity hypodense consistent with fatty infiltrate to hepatocellular disease. Laboratory show WBC 12.3 hemoglobin 15.1 and platelets 03/20/1971 Sodium 138 potassium 3.8 chloride 105 bicarb is 20 BUN 24 and creatinine 0.8 and blood sugar 137 lactic acid 1.3 total bili 1.3 AST 87 ALT 87 alk phos 65 albumin 5.2 mL is 2275 and lipase greater than 20,000 Patient is currently sitting in the bed.. Awake alert and oriented x 3. No complaints of chest pain. Abdominal pain is much improved. Otherwise patient is status post laparoscopic cholecystectomy 2023 Patient is status post laparoscopic cholecystectomy. Postoperative day 0 Laboratory data showed WBC 6.0 hemoglobin 12.1 and platelets 187 sodium 141 potassium 3.9 chloride 114 bicarb is 23 BUN 24 and creatinine 0.97 and blood sugar 79. AST 46 ALT 54 and alk phos 44 and lipase level came down to 1510. Patient remains on antibiotics in the form of Zosyn. Current medications reviewed Objective - Vital Signs Vital signs: Vital Signs Temp 97.9 F 01/08/24 10:32 Pulse 78 01/08/24 10:32 Resp 16 01/08/24 10:32 BP 122/66 01/08/24 10:32 Pulse Ox 95 01/08/24 10:32 FiO2 Intake & Output 01/07/24 01/08/24 01/08/24 18:59 06:59 18:59 Intake Total 1000 Balance 1000 Weight 81.647 kg Intake: Intake, IV Titration 1000 Amount Sodium Chloride 0.9% 1, 1000 000 ml @ 130 mls/hr IV . Q7H42M [facility] Rx#:[id number] Other: Voiding Method Toilet # Voids 1 2 # Bowel Movements 0 - Exam PHYSICAL EXAMINATION: Patient is lying in the bed comfortably, no acute distress, awake alert and oriented.. HEENT: Normocephalic. Neck is supple. Pupils reactive. Nostrils clear. Oral cavity is moist. Neck reveals no JVD, carotid bruits, or thyromegaly. CHEST EXAMINATION: Trachea is central. Symmetrical expansion. Bibasilar diminished sounds. CARDIAC: Normal S1, S2 with no gallops. No murmurs ABDOMEN: Soft. Mild tenderness over the surgical incision sites. No guarding or rigidity. Bowel sounds normal. No organomegaly. No abdominal bruits. Extremities: reveal no edema. No clubbing or cyanosis Neurologically awake, alert, oriented x3 with well-coordinated movements. No focal deficits noted Skin: No rash or skin lesions. Psychiatric: Coperative. Nonsuicidal Musculoskeletal: No joint swelling or deformity. Normal range of motion. - Labs CBC & Chem 7: 01/09/24 05:06 01/09/24 05:06 Labs: Abnormal Lab Results - Last 24 Hours (Table) 01/07/24 01/08/24 Range/Units 18:18 05:25 Chloride 114 H (98-107) mmol/L BUN 24 H (7-17) mg/dL Calcium 8.3 L (8.4-10.2) mg/dL AST 46 H (14-36) U/L ALT 54 H (4-34) U/L Total Protein 5.8 L (6.3-8.2) g/dL Albumin 3.4 L (3.5-5.0) g/dL Lipase 1510 H (23-300) U/L Urine Appearance Cloudy H (Clear) Urine Protein Trace H (Negative) Urine Ketones 1+ H (Negative) Hyaline Casts 4 H (0-2) /lpf Urine Mucus Many H (None) /hpf Assessment and Plan Assessment: Acute severe pancreatitis likely gallstone related. Lipase level is improving. Small gallstones and gallbladder sludge with distended gallbladder. Status post laparoscopic cholecystectomy on 01/08/2024. Elevated amylase and lipase levels Mild leukocytosis GI and DVT prophylaxis with Pepcid and heparin subcu Plan: Patient will be continued on IV hydration.. Continue with IV pain medications in the form of morphine 4 mg every 4 hourly. Patient is status post laparoscopic cholecystectomy. Gastroenterology and general surgery w is on board Continue with empiric antibiotics in the form of Zosyn. GI and DVT prophylaxis and follow-up closely.. Time with Patient: Greater than 30
--- NOTE | 2024-01-09 11:37 | P.PN ---
Subjective Progress Note Date: 01/09/24 CHIEF COMPLAINT: Cholecystitis HISTORY OF PRESENT ILLNESS: Patient is postop day 1 status post laparoscopic cholecystectomy. Patient tolerated surgery well. Pain is controlled. She is having flatus. She is tolerating diet. She is afebrile. She has been up and ambulating. She is stable for discharge. WBC 8.4 Hgb 11 PHYSICAL EXAM: VITAL SIGNS: Reviewed. GENERAL: Well-developed in no acute distress. ABDOMEN: Soft. Mildly distended. Incision sites clean dry and intact. NEUROLOGIC: Alert and oriented. Cranial nerves II through XII grossly intact. ASSESSMENT: 1. Gallstone pancreatitis 2. Cholecystitis PLAN: -Patient is stable for discharge from surgical standpoint Physician Clinical Specialist Medical Device note has been reviewed by physician. Signing provider agrees with the documented findings, assessment, and plan of care. Objective - Vital Signs Vital signs: Vital Signs Temp 98.5 F 01/09/24 08:09 Pulse 82 01/09/24 08:09 Resp 16 01/09/24 08:09 BP 135/70 01/09/24 08:09 Pulse Ox 93 L 01/09/24 08:09 FiO2 Intake & Output 01/08/24 01/09/24 01/09/24 18:59 06:59 18:59 Intake Total 3680 590 560 Output Total 5 Balance 3675 590 560 Intake: IV 1400 Intake, IV Titration 1240 Amount Piperacillin-Tazobactam 3 200 .375 gm In Sodium Chloride 0.9% 100 ml @ 25 mls/hr IVPB Q8HR [facility] Rx# :[id number] Sodium Chloride 0.9% 1, 1040 000 ml @ 100 mls/hr IV . Q10H [facility] Rx#:[id number] Oral 1040 590 560 Output: Estimated Blood Loss 5 Other: Voiding Method Toilet # Voids 2 2 # Bowel Movements 0 - Labs CBC & Chem 7: 01/09/24 05:06 01/09/24 05:06 Labs: Abnormal Lab Results - Last 24 Hours (Table) 01/09/24 01/09/24 Range/Units 05:06 05:06 RBC 3.68 L (4.10-5.20) X 10*6/uL Hgb 11.0 L (12.0-15.0) g/dL Hct 35.0 L (37.2-46.3) % MCHC 31.4 L (32.0-37.0) g/dL Immature Gran # 0.05 H (0.00-0.04) X 10*3/uL Carbon Dioxide 18.4 L (21.6-31.8) mmol/L Anion Gap 12.60 H (4.00-12.00) mmol/L Calcium 8.3 L (8.7-10.3) mg/dL
[2024-01-09] MEDS: HYDROcodone/APAP 5-325MG 1 EACH TAB PO PRN (11:41)
[2024-01-09 13:03] VITALS: BP 140/82; PULSE 98; TEMP 98.3
--- NOTE | 2024-01-16 14:00 | P.DS ---
Providers Date of admission: 01/07/24 08:23 Expected date of discharge: 01/09/24 Attending physician: Sandrita Rivera Consults: 01/07/24 08:21 Consult Physician Routine Consulting Provider: Lopez Schneider Consult Reason/Comments: abdominal pain Do you want consulting provider notified?: Yes Primary care physician: Hal Moody [facility] Course: Final diagnosis Acute severe pancreatitis likely gallstone related Small gallstones and gallbladder sludge with distended gallbladder. Status postacute cholecystectomy Elevated amylase and lipase levels, trending down Mild leukocytosis, improving GI and DVT prophylaxis with Pepcid and heparin subcu Obesity with a BMI of 30.0 Full code Discharge disposition Patient is being discharged in a stable condition with guarded prognosis to home. Patient will follow-up with Dr. Moody in the outpatient setting upon discharge. Patient is to continue with current medications and diet and outpatient follow-up with general surgery as scheduled. Total time taken is greater than 35 minutes. Hospital course This is a 54-year-old female who was recently admitted with abdominal pain found to have acute severe pancreatitis likely gallstone related as there were small gallstones and sludge noted with a distended gallbladder. Patient also evaluated by general surgery underwent laparoscopic cholecystectomy and doing well. Patient has been cleared by GI and cardiology recommending outpatient follow-up. Prescription provided for repeat labs in the outpatient setting and patient was instructed to follow-up with primary care provider on discharge. Continue current diet and slowly advance as tolerated and follow-up with general surgery outpatient. Please refer to other consultation notes for further HPI. Continue incentive spirometer use at least 10 times every hour while awake. Currently no reports of chest pain, shortness of breath, or palpitations. Patient is afebrile. No reports of nausea or vomiting and patient is tolerating diet. Patient will be discharged home today. Physical exam: Gen: This is a 54-year-old female who is awake, alert and oriented x 3, well- developed, well-nourished, obese HEENT: Head is atraumatic, normocephalic. Pupils equal, round. Sclerae is anicteric. NECK: Supple. No JVD. No lymphadenopathy. No thyromegaly. LUNGS: Clear to auscultation. No wheezes or rhonchi. No intercostal retractions. HEART: Regular rate and rhythm. No murmur. ABDOMEN: Soft. Obese, mildly tender bowel sounds are present. No masses. Surgical sites are dry and intact with no drainage or redness EXTREMITIES: No pedal edema. No calf tenderness. NEUROLOGICAL: Patient is awake, alert and oriented x3. Cranial nerves 2 through 12 are grossly intact. Please refer to medication reconciliation sheet for a list of medications. The impression and plan of care has been dictated by Mariya Tsang, Nurse Practitioner as directed. Dr. Devin MD I have performed a history and examination and MDM of this patient, discussed the same with the dictator, and agree with the dictator's assessment and plan as written ,documented as a scribe. Based on total visit time, I have performed more than 50% of the visit. Patient Condition at Discharge: Stable Plan - Discharge Summary Discharge Rx Participant: No New Discharge Prescriptions: New Docusate [Colace] 100 mg PO BID #30 capsule Ibuprofen [Motrin] 600 mg PO Q8HR PRN #30 tab PRN Reason: Pain HYDROcodone/APAP 5-325MG [Richardson 5-325] 1 tab PO Q6HR PRN 3 Days #12 tab PRN Reason: Pain Pantoprazole [Protonix] 40 mg PO DAILY #30 tab Discharge Medication List Docusate [Colace] 100 mg PO BID #30 capsule 01/09/24 [Rx] HYDROcodone/APAP 5-325MG [Richardson 5-325] 1 tab PO Q6HR PRN 3 Days #12 tab 01/09/24 [Rx] Ibuprofen [Motrin] 600 mg PO Q8HR PRN #30 tab 01/09/24 [Rx] Pantoprazole [Protonix] 40 mg PO DAILY #30 tab 01/09/24 [Rx] Follow up Appointment(s)/Referral(s): Hal Moody DO [Primary Care Provider] - 1-2 days Lopez Schneider MD [STAFF PHYSICIAN] - 1 Week Patient Instructions/Handouts: Pancreatitis (DC) Activity/Diet/Wound Care/Special Instructions: No driving while taking Richardson No lifting over 10 pounds Shower daily. No soaking or tub baths for 2 weeks Very light activity until you are reevaluated at your follow up appointment with your surgeon Follow-up with primary care provider on discharge Continue current diet and slowly advance as you tolerate Discharge Disposition: HOME SELF-CARE
== END 2024-01-09 13:16 | disposition home or self-care (01) | DRG 417 ==
LOC: EC 02:27 → 5NMEDONC 08:23 → 1SOBS 12:30 → 6NMEDSUR 01-08 05:51 → 5NMEDONC 01-08 05:52
PROVIDERS: ADMIT Hospitalist; ATTEND Hospitalist
PROC: 0FT44ZZ Resection of Gallbladder, Percutaneous Endoscopic Approach (ICD-10-PCS; principal; 2024-01-08 07:30)
DX: K81.1 Chronic cholecystitis (principal); K85.10 Biliary acute pancreatitis without necrosis or infection; K82.1 Hydrops of gallbladder; E66.9 Obesity, unspecified; K76.0 Fatty (change of) liver, not elsewhere classified; Z68.30 Body mass index [BMI] 30.0-30.9, adult
CPT/HCPCS: 36415; 74176; 76705; 80048; 80053; 81001; 81025; 82150; 83605; 83690; 85025; 85610; 86140; 88304; 96361; 96374; 96375; 96376; 99285

== ENCOUNTER → 2024-05-27 | Outpatient (CLI) | payer BC ==
--- NOTE | 2024-05-28 09:56 | MM ---
Reason for Exam: Screening (asymptomatic). Patient History: Menarche at age 11. First Full-Term at age 30. Late child-bearing (after 29). Postmenopausal. Maternal grandmother had breast cancer. Risk Values: Gabby 5 year model risk: 1.6%. NCI Lifetime model risk: 11.2%. Prior Study Comparison: No prior studies available for comparison. Tissue Density: There are scattered areas of fibroglandular density. Findings: Analyzed By CAD. There is no suspicious group of microcalcifications or new suspicious mass in either breast. Overall Assessment: Benign, BI-RAD 2 Management: Screening Mammogram of both breasts in 1 year. . Patient should continue monthly self-breast exams. A clinical breast exam by your physician is recommended on an annual basis. This exam should not preclude additional follow-up of suspicious palpable abnormalities. Note on Gabby scores and lifetime risk: 1. A Gabby score greater than 3% is considered moderate risk. If this is the case, consider specialist referral to assess eligibility for a risk reducing agent. 2. If overall lifetime risk for the development of breast cancer is 20% or higher, the patient may qualify for future screening with alternating mammogram and breast MRI. [facility], , 05/28/2024 9:53 AM. Electronically signed and approved by: Tommie Hall M.D. [facility]
== END | disposition home or self-care (01) ==
LOC: RADMAMWWP 14:01
PROVIDERS: ATTEND Family Medicine
DX: Z12.31 Encounter for screening mammogram for malignant neoplasm of breast (principal); R92.323 Mammographic fibroglandular density, bilateral breasts; Z78.0 Asymptomatic menopausal state; Z80.3 Family history of malignant neoplasm of breast
CPT/HCPCS: 77063; 77067